=== PATIENT | male | born 1980 | race American Indian/Alaskan Native ===

== ENCOUNTER 2018-08-09 02:23 | Emergency (ER) | payer MEDICARE ==
[2018-08-09 04:39] VITALS: BP 146/84
[2018-08-09] MEDS ORDERED: NACL 0.9% 1000 ML 1,000 ML IV ONE (05:48)
[2018-08-09 06:10] LABS: Basophils % (Auto) 0.3 % (0.0-1.8); Eosinophils # (Auto) 0.3 K/mm3 (0.0-0.4); Eosinophils % (Auto) 3.7 % (0.0-4.3); Hematocrit 35.2 % (35.5-45.6); Hemoglobin 10.8 gm/dl (11.8-15.2); Lymphocytes # (Auto) 1.9 K/mm3 (1.2-5.4); Lymphocytes % (Auto) 27.8 % (13.4-35.0); Mean Corpuscular HGB Conc 31 % (32-34); Monocytes # (Auto) 0.5 K/mm3 (0.0-0.8); Monocytes % (Auto) 7.8 % (0.0-7.3); Platelet Count 262 K/mm3 (140-440); Red Blood Count 5.21 M/mm3 (3.65-5.03); Red Cell Distribution Width 19.9 % (13.2-15.2)
[2018-08-09 06:13] LABS: Mean Corpuscular Hemoglobin 21 pg (28-32); Mean Corpuscular Volume 68 fl (84-94)
[2018-08-09 06:39] LABS: Alanine Aminotransferase 9 units/L (7-56); Albumin 3.6 g/dL (3.9-5); BUN/Creatinine Ratio 14; Blood Urea Nitrogen 13 mg/dL (9-20); Calcium 9.1 mg/dL (8.4-10.2); Hemolysis Index 10; Lipase 18 units/L (13-60)
--- NOTE | 2018-08-09 09:43 | Emergency Department Report ---
ED Abdominal Pain HPI - General Chief Complaint: Abdominal Pain Stated Complaint: ABDOMINAL PAIN Source: patient, EMS Mode of arrival: Stretcher Limitations: Physical Limitation - History of Present Illness Initial Comments: This is a 38-year-old -[place] male presents with abdominal cramping and diarrhea that started yesterday. Past medical history of hypertension, cerebral palsy, and depression. Patient states he "shrimp at home and ate dinner and shortly after started having abdominal cramping, nausea, and diarrhea. Patient states prior to eating dinner yesterday appetite has been decreased due to living situation. Patient reports gas and sharp cramping. He reports feeling fine prior to eating yesterday. He denies fever, vomiting, frequency, urgency, dysuria, chest pain. MD Complaint: abdominal pain Onset/Timin -: days(s) Location: diffuse Radiation: none Migration to: no migration Severity: moderate Severity scale (0 -10): 5 Quality: cramping Consistency: constant Improves With: nothing Worsens With: bowel movement Context: possible food poisoning Associated Symptoms: nausea, diarrhea - Related Data Home Medications Medication Instructions Recorded Confirmed Last Taken Baclofen [Lioresal] 20 mg PO TID 10/01/13 10/01/13 10/01/13 13:00 20mg DULoxetine [Cymbalta] 1 cap PO QHS 10/01/13 10/01/13 10/01/13 30mg Duloxetine HCl [Cymbalta] 60 mg PO QDAY 10/01/13 10/01/13 10/01/13 0900 Ergocalciferol [Vitamin D2] 1 cap PO QWEEK 10/01/13 10/01/13 09/21/13 09:00 50,000 units HYDROcodone/APAP 7.5-325 [[place] 1 each PO Q6HR PRN 10/01/13 10/01/13 Unknown 7.5/325 mg] Ibuprofen [Motrin] 800 mg PO TID PRN 10/01/13 10/01/13 10/01/13 800mg Quetiapine Fumarate [Seroquel Xr] 200 mg PO QHS 10/01/13 10/01/13 09/30/13 200mg Quetiapine Fumarate [Seroquel] 50 mg PO BID 10/01/13 10/01/13 Unknown amLODIPine [Norvasc] 5 mg PO DAILY 10/01/13 10/01/13 10/01/13 09:00 5mg clonazePAM [Clonazepam] 0.5 mg PO BID PRN 10/01/13 10/01/13 10/01/13 09:00 0.5mg Previous Rx's Medication Instructions Recorded Last Taken Type Ondansetron [Zofran Odt] 8 mg PO Q8H PRN #20 tab.rapdis 01/02/14 Unknown Rx Polyethylene Glycol 3350 [Miralax 17 gm PO BID #10 packet 08/09/18 Unknown Rx 3350] Sodium Phosphate,Otoe-Dibasic 133 ml RC ONCE #1 enema 08/09/18 Unknown Rx [Enema Ready To Use] Allergies Allergy/AdvReac Type Severity Reaction Status Date / Time No Known Allergies Allergy Unverified 01/01/14 23:06 ED Review of Systems ROS: Stated complaint: ABDOMINAL PAIN Other details as noted in HPI Constitutional: denies: chills, fever Respiratory: denies: cough, shortness of breath, wheezing Cardiovascular: denies: chest pain, palpitations Gastrointestinal: abdominal pain, nausea, diarrhea. denies: vomiting Genitourinary: denies: urgency, dysuria Neurological: denies: headache, weakness, paresthesias Psychiatric: denies: anxiety, depression ED Past Medical Hx - Past Medical History Hx Hypertension: Yes Hx Psychiatric Treatment: Yes (see below) Additional medical history: Cerebal Palsy, major depression disorder, schizophrenia. Patient describes left-sided paresthesias from something pressing on this time, I think he is describing herniated disc - Surgical History Additional Surgical History: cervical disc repair/decompression, right leg surgery - Social History Smoking Status: Never Smoker Substance Use Type: None - Medications Home Medications: Home Medications Medication Instructions Recorded Confirmed Last Taken Type Baclofen [Lioresal] 20 mg PO TID 10/01/13 10/01/13 10/01/13 13:00 History 20mg DULoxetine [Cymbalta] 1 cap PO QHS 10/01/13 10/01/13 10/01/13 History 30mg Duloxetine HCl [Cymbalta] 60 mg PO QDAY 10/01/13 10/01/13 10/01/13 History 0900 Ergocalciferol [Vitamin D2] 1 cap PO QWEEK 10/01/13 10/01/13 09/21/13 09:00 History 50,000 units HYDROcodone/APAP 7.5-325 [[place] 1 each PO Q6HR PRN 10/01/13 10/01/13 Unknown History 7.5/325 mg] Ibuprofen [Motrin] 800 mg PO TID PRN 10/01/13 10/01/13 10/01/13 History 800mg Quetiapine Fumarate [Seroquel Xr] 200 mg PO QHS 10/01/13 10/01/13 09/30/13 History 200mg Quetiapine Fumarate [Seroquel] 50 mg PO BID 10/01/13 10/01/13 Unknown History amLODIPine [Norvasc] 5 mg PO DAILY 10/01/13 10/01/13 10/01/13 09:00 History 5mg clonazePAM [Clonazepam] 0.5 mg PO BID PRN 10/01/13 10/01/13 10/01/13 09:00 History 0.5mg Ondansetron [Zofran Odt] 8 mg PO Q8H PRN #20 tab.rapdis 01/02/14 Unknown Rx Polyethylene Glycol 3350 [Miralax 17 gm PO BID #10 packet 08/09/18 Unknown Rx 3350] Sodium Phosphate,Otoe-Dibasic 133 ml RC ONCE #1 enema 08/09/18 Unknown Rx [Enema Ready To Use] ED Physical Exam - General Limitations: Physical Limitation General appearance: alert, in no apparent distress, obese - Respiratory Respiratory exam: Present: normal lung sounds bilaterally. Absent: respiratory distress - Cardiovascular Cardiovascular Exam: Present: regular rate, normal rhythm. Absent: systolic murmur, diastolic murmur, rubs, gallop - GI/Abdominal GI/Abdominal exam: Present: soft, tenderness (LUQ and RUQ tenderness), normal bowel sounds. Absent: distended, guarding, rebound, rigid, organomegaly, mass - Neurological Exam Neurological exam: Present: alert, oriented X3 - Psychiatric Psychiatric exam: Present: normal affect, normal mood - Skin Skin exam: Present: warm, dry, intact, normal color. Absent: rash ED Course Vital Signs 08/09/18 08/09/18 04:36 05:42 Temperature 98.8 F 98.8 F Pulse Rate 81 81 Respiratory 16 Rate Blood Pressure 146/84 146/84 O2 Sat by Pulse 100 100 Oximetry ED Medical Decision Making - Lab Data Result diagrams: 08/09/18 05:49 08/09/18 05:49 Lab Results 08/09/18 08/09/18 08/09/18 Range/Units 05:49 05:49 09:41 WBC 6.9 (4.5-11.0) K/mm3 RBC 5.21 H (3.65-5.03) M/mm3 Hgb 10.8 L (11.8-15.2) gm/dl Hct 35.2 L (35.5-45.6) % MCV 68 L (84-94) fl MCH 21 L (28-32) pg MCHC 31 L (32-34) % RDW 19.9 H (13.2-15.2) % Plt Count 262 (140-440) K/mm3 Lymph % (Auto) 27.8 (13.4-35.0) % [place] % (Auto) 7.8 H (0.0-7.3) % Eos % (Auto) 3.7 (0.0-4.3) % Baso % (Auto) 0.3 (0.0-1.8) % Lymph # 1.9 (1.2-5.4) K/mm3 [place] # 0.5 (0.0-0.8) K/mm3 Eos # 0.3 (0.0-0.4) K/mm3 Baso # 0.0 (0.0-0.1) K/mm3 Seg Neutrophils % 60.4 (40.0-70.0) % Seg Neutrophils # 4.2 (1.8-7.7) K/mm3 Sodium 141 (137-145) mmol/L Potassium 3.8 (3.6-5.0) mmol/L Chloride 104.0 (98-107) mmol/L Carbon Dioxide 26 (22-30) mmol/L Anion Gap 15 mmol/L BUN 13 (9-20) mg/dL Creatinine 0.9 (0.8-1.5) mg/dL Estimated GFR > 60 ml/min BUN/Creatinine Ratio 14 % Glucose 85 (75-100) mg/dL Calcium 9.1 (8.4-10.2) mg/dL Total Bilirubin 0.30 (0.1-1.2) mg/dL AST 12 (5-40) units/L ALT 9 (7-56) units/L Alkaline Phosphatase 97 (35-129) units/L Total Protein 7.0 (6.3-8.2) g/dL Albumin 3.6 L (3.9-5) g/dL Albumin/Globulin Ratio 1.1 % Lipase 18 (13-60) units/L Urine Color Yellow (Yellow) Urine Turbidity Clear (Clear) Urine pH 6.0 (5.0-7.0) Ur Specific [place] 1.023 (1.003-1.030) Urine Protein <15 mg/dl (Negative) mg/dL Urine Glucose (UA) Neg (Negative) mg/dL Urine Ketones Neg (Negative) mg/dL Urine Blood Neg (Negative) Urine Nitrite Neg (Negative) Urine Bilirubin Neg (Negative) Urine Urobilinogen 4.0 (<2.0) mg/dL Ur Leukocyte Esterase Neg (Negative) Urine WBC (Auto) 1.0 (0.0-6.0) /HPF Urine RBC (Auto) 1.0 (0.0-6.0) /HPF Urine Mucus 2+ /HPF - Radiology Data Radiology results: report reviewed, image reviewed CT ABDOMEN PELVIS WITHOUT CONTRAST: HISTORY: Left upper quadrant tenderness. COMPARISON: none. TECHNIQUE: Helical CT in 1.25mm intervals without IV contrast. Sagittal and coronal reconstructions. FINDINGS: Lung bases: Normal. Liver: Normal. Biliary system: Normal. Pancreas: Normal. Spleen: Normal. Kidneys/ureters/bladder: Normal. Adrenal glands: Normal. Aorta: Normal. Intestines: Within normal limits given no oral contrast was administered. There is moderate to large stool in the rectal vault. Appendix: Normal. Pelvic viscera: Normal. Ascites: None. Adenopathy: None. Musculoskeletal: Normal. IMPRESSION: No acute process is identified in the abdomen or pelvis. No clear explanation for left upper quadrant tenderness. Moderate fecal retention in the rectum. - Medical Decision Making Patient examined by me. Patient nontoxic appearing and in no distress noted. Vitals stable. Obtained labs and CT of abdomen. CBC findings of anemia. CT of abdomen dictated by radiologist and report reviewed by myself. No acute process is identified in the abdomen or pelvis. No clear explanation for left upper quadrant tenderness. Moderate fecal retention in the rectum. Start miralax and enema, increase fiber and water intake for constipation. Follow up with PCP. Critical care attestation.: If time is entered above; I have spent that time in minutes in the direct care of this critically ill patient, excluding procedure time. ED Disposition Clinical Impression: Constipation due to outlet obstruction, Gastroenteritis Diarrhea Qualifiers: Diarrhea type: presumed infectious Qualified Code(s): R19.7 - Diarrhea, unspecified Disposition: TO HOME OR SELFCARE Is pt being admited?: No Does the pt Need Aspirin: No Condition: Stable Instructions: Gastroenteritis (ED), Constipation (ED), High Fiber Diet (ED) Additional Instructions: Increase fiber intake with foods and/or MiraLAX. Increase water intake and drink or eat prunes. Take colace daily to soften stool. Use enema suppository to help expel bowel. Follow up with primary care provider in 24-72 hours. Prescriptions: Polyethylene Glycol 3350 [Miralax 3350] 17 gm PO BID #10 packet Sodium Phosphate,Otoe-Dibasic [Enema Ready To Use] 133 ml RC ONCE #1 enema Referrals: [facility] [Outside] - 3-5 Days [facility] [Outside] - 3-5 Days [facility] [Outside] - 3-5 Days Time of Disposition: 11:10 Print Language: THAI
[2018-08-09 10:20] LABS: Bilirubin,Urine NEG (Negative); Blood,Urine NEG (Negative); Color,Urine Yellow (Yellow); Mucus,Urine 2+ /HPF; Protein,Urine <15 mg/dL mg/dL (Negative)
--- NOTE | 2018-08-09 11:01 | Cat Scan Report ---
CT ABDOMEN PELVIS WITHOUT CONTRAST: HISTORY: Left upper quadrant tenderness. COMPARISON: none. TECHNIQUE: Helical CT in 1.25mm intervals without IV contrast. Sagittal and coronal reconstructions. FINDINGS: Lung bases: Normal. Liver: Normal. Biliary system: Normal. Pancreas: Normal. Spleen: Normal. Kidneys/ureters/bladder: Normal. Adrenal glands: Normal. Aorta: Normal. Intestines: Within normal limits given no oral contrast was administered. There is moderate to large stool in the rectal vault. Appendix: Normal. Pelvic viscera: Normal. Ascites: None. Adenopathy: None. Musculoskeletal: Normal. IMPRESSION: No acute process is identified in the abdomen or pelvis. No clear explanation for left upper quadrant tenderness. Moderate fecal retention in the rectum.
== END 2018-08-09 11:35 | disposition home or self-care (01) ==
LOC: ED 02:23
DX: K59.09 Other constipation (principal); K52.9 Noninfective gastroenteritis and colitis, unspecified; I10 Essential (primary) hypertension; G80.9 Cerebral palsy, unspecified; F20.9 Schizophrenia, unspecified; F32.9 Major depressive disorder, single episode, unspecified
CPT/HCPCS: 36415; 74176; 80053; 81001; 83690; 85025

== ENCOUNTER 2021-03-26 07:36 | Emergency (ER) | payer MEDICARE ==
--- NOTE | 2021-03-26 08:28 | Emergency Department Report ---
ED General Adult HPI - General Chief complaint: Fall Stated complaint: HYPOTHERMIA/FALL Time Seen by Provider: 03/26/21 07:46 Source: EMS Mode of arrival: Stretcher Limitations: No Limitations - History of Present Illness Initial comments: This is a very poorly cooperative 40-year-old male who states he is visiting family for 2 days. He states that he was out in his wheelchair and fell out onto the ground in the rain. EMS reported him down for 45 minutes. He states that he is visiting his cousin. He knows he is at [facility]. He states that he does not reside in the area but has been here before. He is quite lucid at the time of my encounter. He states he is cold. The nurse found him to have an axillary temp of 97. He refused rectal temperature. He is persistent and keeping blankets over his head. He will hardly allow examination. He does not report an injury. He is not complaining of pain. He states he will allow laboratory evaluation. He does not report any current medications. -: Gradual Associated Symptoms: denies other symptoms (Poorly cooperative but without co mplaint) - Related Data Home Medications Medication Instructions Recorded Confirmed Last Taken Baclofen [Lioresal] 20 mg PO TID 10/01/13 10/01/13 10/01/13 13:00 20 mg DULoxetine [Cymbalta] 1 cap PO QHS 10/01/13 10/01/13 10/01/13 30 mg Duloxetine HCl [Cymbalta] 60 mg PO QDAY 10/01/13 10/01/13 10/01/13 0900 Ergocalciferol [Vitamin D2] 1 cap PO QWEEK 10/01/13 10/01/13 09/21/13 09:00 50,000 units HYDROcodone/APAP 7.5-325 [[place] 1 each PO Q6HR PRN 10/01/13 10/01/13 Unknown 7.5/325 mg] Ibuprofen [Motrin] 800 mg PO TID PRN 10/01/13 10/01/13 10/01/13 800 mg Quetiapine Fumarate [Seroquel Xr] 200 mg PO QHS 10/01/13 10/01/13 09/30/13 200 mg Quetiapine Fumarate [Seroquel] 50 mg PO BID 10/01/13 10/01/13 Unknown amLODIPine [Norvasc] 5 mg PO DAILY 10/01/13 10/01/13 10/01/13 09:00 5 mg clonazePAM [Clonazepam] 0.5 mg PO BID PRN 10/01/13 10/01/13 10/01/13 09:00 0.5mg Previous Rx's Medication Instructions Recorded Last Taken Type Ondansetron [Zofran Odt] 8 mg PO Q8H PRN #20 tab.rapdis 01/02/14 Unknown Rx Sodium Phosphate,Asotin-Dibasic 133 ml RC ONCE #1 enema 08/09/18 Unknown Rx [Enema Ready To Use] polyethylene glycoL 3350 [Miralax 17 gm PO BID #10 packet 08/09/18 Unknown Rx 3350] Allergies Allergy/AdvReac Type Severity Reaction Status Date / Time No Known Allergies Allergy Unverified 01/01/14 23:06 ED Review of Systems ROS: Stated complaint: HYPOTHERMIA/FALL Other details as noted in HPI Comment: Unobtainable due to pts medical conditions (Lack of cooperation. Denies injury.) ED Past Medical Hx - Past Medical History Hx Hypertension: Yes Hx Psychiatric Treatment: Yes (see below) Additional medical history: Cerebal Palsy, major depression disorder, schizophrenia. Patient describes left-sided paresthesias from something pressing on this time, I think he is describing herniated disc - Surgical History Additional Surgical History: cervical disc repair/decompression, right leg surgery - Social History Smoking Status: Unknown if ever smoked - Medications Home Medications: Home Medications Medication Instructions Recorded Confirmed Last Taken Type Baclofen [Lioresal] 20 mg PO TID 10/01/13 10/01/13 10/01/13 13:00 History 20 mg DULoxetine [Cymbalta] 1 cap PO QHS 10/01/13 10/01/13 10/01/13 History 30 mg Duloxetine HCl [Cymbalta] 60 mg PO QDAY 10/01/13 10/01/13 10/01/13 History 0900 Ergocalciferol [Vitamin D2] 1 cap PO QWEEK 10/01/13 10/01/13 09/21/13 09:00 H istory 50,000 units HYDROcodone/APAP 7.5-325 [[place] 1 each PO Q6HR PRN 10/01/13 10/01/13 Unknown History 7.5/325 mg] Ibuprofen [Motrin] 800 mg PO TID PRN 10/01/13 10/01/13 10/01/13 History 800 mg Quetiapine Fumarate [Seroquel Xr] 200 mg PO QHS 10/01/13 10/01/13 09/30/13 Histo ry 200 mg Quetiapine Fumarate [Seroquel] 50 mg PO BID 10/01/13 10/01/13 Unknown History amLODIPine [Norvasc] 5 mg PO DAILY 10/01/13 10/01/13 10/01/13 09:00 History 5 mg clonazePAM [Clonazepam] 0.5 mg PO BID PRN 10/01/13 10/01/13 10/01/13 09:00 History 0.5mg Ondansetron [Zofran Odt] 8 mg PO Q8H PRN #20 tab.rapdis 01/02/14 Unknown Rx Sodium Phosphate,Asotin-Dibasic 133 ml RC ONCE #1 enema 08/09/18 Unknown Rx [Enema Ready To Use] polyethylene glycoL 3350 [Miralax 17 gm PO BID #10 packet 08/09/18 Unknown Rx 3350] ED Physical Exam - General Limitations: Physical Limitation General appearance: alert, in no apparent distress - Head Head exam: Present: atraumatic, normocephalic - Eye Eye exam: Present: normal appearance - ENT ENT exam: Present: mucous membranes moist - Neck Neck exam: Present: normal inspection - Respiratory Respiratory exam: Present: normal lung sounds bilaterally. Absent: respiratory distress - Cardiovascular Cardiovascular Exam: Present: regular rate (Hardly allows exam) - GI/Abdominal GI/Abdominal exam: Present: soft. Absent: distended, tenderness - Extremities Exam Extremities exam: Present: other (Legs appear contracted. Very edematous.) - Back Exam Back exam: Present: other (Unable to visualize.) - Neurological Exam Neurological exam: Present: other (No acute focal deficit) - Psychiatric Psychiatric exam: Present: agitated, flat affect (Poorly cooperative) - Skin Skin exam: Present: warm ED Course Vital Signs 03/26/21 03/26/21 03/26/21 07:34 07:43 08:00 Temperature 97.9 F Pulse Rate 74 Respiratory 17 Rate Blood Pressure 122/67 122/67 O2 Sat by Pulse 98 100 100 Oximetry 03/26/21 03/26/21 03/26/21 08:30 09:00 09:30 Temperature Pulse Rate Respiratory Rate Blood Pressure 137/61 127/67 129/75 O2 Sat by Pulse 100 100 100 Oximetry 03/26/21 03/26/21 03/26/21 10:30 11:00 11:30 Temperature Pulse Rate Respiratory Rate Blood Pressure 135/76 135/76 134/78 O2 Sat by Pulse 100 100 100 Oximetry 03/26/21 03/26/21 03/26/21 12:00 12:30 13:00 Temperature Pulse Rate Respiratory Rate Blood Pressure 129/75 127/71 126/71 O2 Sat by Pulse 100 99 100 Oximetry 03/26/21 13:30 Temperature Pulse Rate Respiratory Rate Blood Pressure 135/80 O2 Sat by Pulse 100 Oximetry - Reevaluation(s) Reevaluation #1: We will attempt medical screening. The patient states he does not know the number of his cousin. He may require case management. 03/26/21 08:28 Reevaluation #2: Patient resting in no distress. His medical screening was negative. He states he is ready to go home. He requests transport. He was resting comfortably and without pain complaint or any referred injury. 03/26/21 14:24 ED Medical Decision Making - Lab Data Result diagrams: 03/26/21 08:11 03/26/21 08:11 Critical care attestation.: If time is entered above; I have spent that time in minutes in the direct care of this critically ill patient, excluding procedure time. ED Disposition Clinical Impression: Encounter for medical screening examination Fall Qualifiers: Encounter type: initial encounter Qualified Code(s): W19.XXXA - Unspecified fall, initial encounter Disposition: DC-01 TO HOME OR SELFCARE Is pt being admited?: No Does the pt Need Aspirin: No Condition: Stable Instructions: Medical Screening Exam Additional Instructions: Return to the emergency department for any acute change or problem. Referrals: PRIMARY MD RICKY [Primary Care Provider] - 3-5 Days [facility] [Provider Group] - 3-5 Days Time of Disposition: 14:25
[2021-03-26 08:31] LABS: Basophils % (Auto) 0.4 % (0.0-1.8); Eosinophils # (Auto) 0.3 K/mm3 (0.0-0.4); Eosinophils % (Auto) 3.3 % (0.0-4.3); Hematocrit 37.4 % (35.5-45.6); Hemoglobin 11.5 gm/dl (11.8-15.2); Lymphocytes # (Auto) 1.1 K/mm3 (1.2-5.4); Lymphocytes % (Auto) 14.5 % (13.4-35.0); Mean Corpuscular HGB Conc 31 % (32-34); Mean Corpuscular Volume 74 fl (84-94); Monocytes # (Auto) 0.6 K/mm3 (0.0-0.8); Monocytes % (Auto) 7.3 % (0.0-7.3); Platelet Count 290 K/mm3 (140-440); Red Blood Count 5.03 M/mm3 (3.65-5.03)
[2021-03-26 08:41] LABS: INR 1.03 (0.87-1.13)
[2021-03-26 08:42] LABS: Partial Thromboplastin Time 35.2 Sec. (24.2-36.6)
[2021-03-26 08:45] LABS: Bilirubin,Urine NEG (Negative); Blood,Urine NEG (Negative); Color,Urine Yellow (Yellow); Mucus,Urine FEW /HPF; Protein,Urine <15 mg/dL mg/dL (Negative)
[2021-03-26 08:50] LABS: Amphetamine Screen,Urine Negative; Benzodiazepines Screen,Urine Negative; Cannabinoid Screen,Urine Negative; Cocaine Screen,Urine Negative; Methadone Screen,Urine Negative; Opiate Screen,Urine Negative
[2021-03-26 09:18] LABS: Creatine Kinase MB 1.4 ng/mL (0.0-4.0)
[2021-03-26 09:20] LABS: Alanine Aminotransferase 15 units/L (7-56); Albumin 3.4 g/dL (3.9-5); BUN/Creatinine Ratio 11; Blood Urea Nitrogen 9 mg/dL (9-20); Calcium 8.6 mg/dL (8.4-10.2); Hemolysis Index 2
[2021-03-26 09:44] LABS: Bilirubin,Direct < 0.2 mg/dL (0-0.2)
[2021-03-26 19:03] VITALS: BP 141/87
== END 2021-03-26 19:04 | disposition home or self-care (01) ==
LOC: ED 07:36
DX: I10 Essential (primary) hypertension (principal); Z79.899 Other long term (current) drug therapy; Z00.00 Encounter for general adult medical examination without abnormal findings; W19.XXXA Unspecified fall, initial encounter; Y93.89 Activity, other specified; Y92.89 Other specified places as the place of occurrence of the external cause; Y99.8 Other external cause status
CPT/HCPCS: 36415; 70450; 80048; 80076; 80307; 80320; 81001; 82140; 82550; 82553; 83735; 83880; 85025; 85610; 85730; 87040; 99283; G0480

== ENCOUNTER 2021-03-26 20:46 | Emergency (ER) | payer MEDICARE ==
--- NOTE | 2021-03-26 22:03 | Emergency Department Report ---
HPI - General Time Seen by Provider: 03/26/21 21:43 - HPI HPI: This 40-year-old male was seen earlier today by one of my colleagues. At that time he was brought to the emergency department by [facility] after he had a fall out of his wheelchair while it was raining. He says that this occurred at or near his cousin's house. The patient is wheelchair-bound secondary to cerebral palsy. Apparently there was some type of issue in getting his wheelchair transported with him to the emergency department. He had vital signs and blood work done and was cleared for discharge. He was picked up by [employer] and brought to the the address of his actual residence where they found that his home was just essentially a mattress on the floor that was surrounded by garbage. The patient asked to be brought to his cousin's house so that he could get his wheelchair or just to be left at a bus stop, but [employer] felt they could not do that and brought him back to the emergency department. The patient says that his cousin is unable to come and get him from the emergency department. He has no new complaints from his original ER visit this afternoon. ED Past Medical Hx - Past Medical History Hx Hypertension: Yes Hx Psychiatric Treatment: Yes (see below) Additional medical history: Cerebal Palsy, major depression disorder, schizophrenia. Patient describes left-sided paresthesias from something pressing on this time, I think he is describing herniated disc - Surgical History Additional Surgical History: cervical disc repair/decompression, right leg surgery - Social History Smoking Status: Unknown if ever smoked - Medications Home Medications: Home Medications Medication Instructions Recorded Confirmed Last Taken Type Baclofen [Lioresal] 20 mg PO TID 10/01/13 10/01/13 10/01/13 13:00 History 20 mg DULoxetine [Cymbalta] 1 cap PO QHS 10/01/13 10/01/13 10/01/13 History 30 mg Duloxetine HCl [Cymbalta] 60 mg PO QDAY 10/01/13 10/01/13 10/01/13 History 0900 Ergocalciferol [Vitamin D2] 1 cap PO QWEEK 10/01/13 10/01/13 09/21/13 09:00 History 50,000 units HYDROcodone/APAP 7.5-325 [[place] 1 each PO Q6HR PRN 10/01/13 10/01/13 Unknown History 7.5/325 mg] Ibuprofen [Motrin] 800 mg PO TID PRN 10/01/13 10/01/13 10/01/13 History 800 mg Quetiapine Fumarate [Seroquel Xr] 200 mg PO QHS 10/01/13 10/01/13 09/30/13 History 200 mg Quetiapine Fumarate [Seroquel] 50 mg PO BID 10/01/13 10/01/13 Unknown History amLODIPine [Norvasc] 5 mg PO DAILY 10/01/13 10/01/13 10/01/13 09:00 History 5 mg clonazePAM [Clonazepam] 0.5 mg PO BID PRN 10/01/13 10/01/13 10/01/13 09:00 History 0.5mg Ondansetron [Zofran Odt] 8 mg PO Q8H PRN #20 tab.rapdis 01/02/14 Unknown Rx Sodium Phosphate,[place]-Dibasic 133 ml RC ONCE #1 enema 08/09/18 Unknown Rx [Enema Ready To Use] polyethylene glycoL 3350 [Miralax 17 gm PO BID #10 packet 08/09/18 Unknown Rx 3350] ED Review of Systems ROS: Stated complaint: CASE MANAGEMENT/RETURN VISIT Other details as noted in HPI Comment: All other systems reviewed and negative Constitutional: denies: chills, fever Eyes: denies: eye pain, vision change ENT: denies: ear pain, throat pain Respiratory: denies: cough, shortness of breath Cardiovascular: denies: chest pain, palpitations Gastrointestinal: denies: abdominal pain, vomiting Genitourinary: denies: dysuria, discharge Musculoskeletal: denies: back pain, arthralgia Skin: denies: rash, lesions Neurological: denies: headache, weakness Physical Exam - Physical Exam Physical Exam: GENERAL: The patient is well-developed well-nourished. HENT: Normocephalic. Atraumatic. Patient has moist mucous membranes. EYES: Extraocular motions are intact. NECK: Supple. Trachea is midline. CHEST/LUNGS: Clear to auscultation. There is no respiratory distress noted. HEART/CARDIOVASCULAR: Regular. There is no tachycardia. There is no murmur. ABDOMEN: Abdomen is soft, nontender. Patient has normal bowel sounds. SKIN: Skin is warm and dry. NEURO: The patient is awake, alert, and cooperative. The patient has no focal neurologic deficits. Normal speech. MUSCULOSKELETAL: There is no tenderness or deformity. ED Medical Decision Making - Lab Data Result diagrams: 04/01/21 14:38 04/01/21 14:38 - Medical Decision Making This patient was brought back to the emergency department, essentially requiring a case management consult. He was seen earlier in the day for his fall from his wheelchair. At that time the patient had laboratory studies that were unremarkable including CBC, coags, metabolic panel. Based on my colleagues charting, the patient was feeling improved and asking for discharge. The issue arose in which the patient wanted to be discharged and then transported to his cousin's house where his wheelchair is. Transportation brought him to his actual residence. This residence was essentially a mattress on the floor and was very disheveled with garbage/trash even on top of the mattress. Transportation did not feel that they could leave the patient in these conditi ons. The patient asked, once again, to be brought to his cousin's house or at least to a bus stop, but apparently they are unable to do so and brought the patient back to the emergency department. He has no new complaints and vital signs are reassuring including being afebrile. Therefore I did not feel that the patient required any repeat laboratory studies or any imaging. We will continue to monitor him while he is in the emergency department and the patient will have a case management consult in the morning for discharge planning assistance. Critical Care Time: No Critical care attestation.: If time is entered above; I have spent that time in minutes in the direct care of this critically ill patient, excluding procedure time. ED Disposition Clinical Impression: Discharge planning issues, History of cerebral palsy, Elevated blood pressure reading Disposition: DC-01 TO HOME OR SELFCARE Is pt being admited?: No Condition: Stable Additional Instructions: Professional and Agency Contacts To help [facility] Crises(07/06) [place] Crisis Line: Suicide Prevention Line: Crisis Text Line: Text START to 022891 Emergency: 911 Outpatient COMMUNITY Behavioral Health Resources: [facility]: [facility] [address] [place], [place] [address] F[place]: [facility] [address] [place] [address] [place]: [facility] - [address] [place] [address] Wednesday thru Wednesday - 8am - 5pm [place]: [facility] Address: [address], [place] [address] [place]: [facility] Address: [address] [place] [address] Wednesday thru Wednesday- 7am-2pm [facility] Address: [address] [place] [address] Wednesday thru Wednesday: 8:30AM-5PM Referrals: PRIMARY CARE, [Primary Care Provider] - 3-5 Days Time of Disposition: 05:13
[2021-03-31] MEDS ORDERED: ACETAMINOPHEN 325 MG TAB PO ONE (16:22)
[2021-04-01] MEDS ORDERED: LORazepam 2 MG/ML VIAL IM PRN (14:30)
[2021-04-01] MEDS ORDERED: ONDANSETRON 4 MG ODT TAB PO PRN (14:30)
[2021-04-01] MEDS ORDERED: diphenhydrAMINE 25 MG CAP PO PRN (14:30)
--- NOTE | 2021-04-01 14:34 | Event Note ---
Date: 04/01/21 The patient was evaluated in the emergency department for symptoms described in the history of present illness. He/she was evaluated in the context of the global COVID-19 pandemic, which necessitated consideration that the patient might be at risk for infection with the virus that causes COVID-19. Institutional protocols and algorithms that pertain to the evaluation of patients at risk for COVID-19 are in a state of rapid change based on information released by regulatory bodies including the CDC and federal and state organizations. These policies and algorithms were followed during the patient's care in the emergency department. Please note that these policies, procedures and recommendations changed on a rapid basis. Case management, in conjunction with Adult Protective Services, have approached me regarding this patient, or the request for formal psychiatric evaluation, to determine decision-making capacity. Apparently, this patient was recently transported to his reported living address, in [place], and the living conditions were deemed to be too squalid for human habitation, by EMS personnel, and thus the patient was thus brought back to this emergency room. He was deemed to not have an emergent medical condition on his initial ER evaluation. Case management, in conjunction with Adult Protective Services, have evaluated the patient, and they are concerned that the patient may not have decision- making capacity or rational decision-making ability. Furthermore, his mother is not able to care for him. The patient also reportedly has cerebral palsy, and may be wheelchair dependent. When I evaluate the patient, he is alert and oriented to name, place, location and month, and is able to recall the president. He ate a meal without difficulty, and is not homicidal or suicidal. However, he is somewhat verbally aggressive, and occasionally verbally belligerent, although this can be deescalated. In order to facilitate appropriate disposition, we will place a mental health consultation to determine if the patient truly has decision-making capacity and ability. He had laboratory studies 6 days which were unremarkable, and which I personally reviewed, and we will repeat laboratory studies and obtain a Covid swab, in case patient requires psychiatric placement. Nursing documentation, and case management documentation reviewed and appreciated. Labs 04/01/21 04/01/21 04/01/21 14:38 14:38 14:38 WBC 7.0 RBC 5.09 H Hgb 12.3 Hct 37.8 MCV 74 L MCH 24 L MCHC 32 RDW 18.0 H Plt Count 303 Sodium 139 Potassium 4.2 Chloride 103.3 Carbon Dioxide 27 Anion Gap 13 BUN 11 Creatinine 0.8 Estimated GFR > 60 BUN/Creatinine Ratio 14 Glucose 101 H Calcium 9.4 Magnesium 2.00 Total Creatine Kinase 263 H TSH 2.950 Urine Color Urine Turbidity Urine pH Ur Specific [place] Urine Protein Urine Glucose (UA) Urine Ketones Urine Blood Urine Nitrite Urine Bilirubin Urine Urobilinogen Ur Leukocyte Esterase Urine WBC (Auto) Urine RBC (Auto) Urine Mucus Salicylates Urine Opiates Screen Urine Methadone Screen Acetaminophen Ur Barbiturates Screen Ur Phencyclidine Scrn Ur Amphetamines Screen U Benzodiazepines Scrn Urine Cocaine Screen U Marijuana (THC) Screen Drugs of Abuse Note 04/01/21 04/01/21 04/01/21 14:38 14:38 17:36 WBC RBC Hgb Hct MCV MCH MCHC RDW Plt Count Sodium Potassium Chloride Carbon Dioxide Anion Gap BUN Creatinine Estimated GFR BUN/Creatinine Ratio Glucose Calcium Magnesium Total Creatine Kinase TSH Urine Color Yellow Urine Turbidity Clear Urine pH 7.0 Ur Specific [place] 1.011 Urine Protein <15 mg/dl Urine Glucose (UA) Neg Urine Ketones Neg Urine Blood Neg Urine Nitrite Neg Urine Bilirubin Neg Urine Urobilinogen 2.0 Ur Leukocyte Esterase Neg Urine WBC (Auto) < 1.0 Urine RBC (Auto) < 1.0 Urine Mucus Few Salicylates < 0.3 L Urine Opiates Screen Urine Methadone Screen Acetaminophen 5.0 L Ur Barbiturates Screen Ur Phencyclidine Scrn Ur Amphetamines Screen U Benzodiazepines Scrn Urine Cocaine Screen U Marijuana (THC) Screen Drugs of Abuse Note 04/01/21 17:36 WBC RBC Hgb Hct MCV MCH MCHC RDW Plt Count Sodium Potassium Chloride Carbon Dioxide Anion Gap BUN Creatinine Estimated GFR BUN/Creatinine Ratio Glucose Calcium Magnesium Total Creatine Kinase TSH Urine Color Urine Turbidity Urine pH Ur Specific [place] Urine Protein Urine Glucose (UA) Urine Ketones Urine Blood Urine Nitrite Urine Bilirubin Urine Urobilinogen Ur Leukocyte Esterase Urine WBC (Auto) Urine RBC (Auto) Urine Mucus Salicylates Urine Opiates Screen Negative Urine Methadone Screen Negative Acetaminophen Ur Barbiturates Screen Negative Ur Phencyclidine Scrn Negative Ur Amphetamines Screen Negative U Benzodiazepines Scrn Negative Urine Cocaine Screen Negative U Marijuana (THC) Screen Negative Drugs of Abuse Note Disclamer
[2021-04-01 15:13] LABS: BUN/Creatinine Ratio 14; Blood Urea Nitrogen 11 mg/dL (9-20); Calcium 9.4 mg/dL (8.4-10.2); Hemolysis Index 2
[2021-04-01 15:26] LABS: Hematocrit 37.8 % (35.5-45.6); Hemoglobin 12.3 gm/dl (11.8-15.2); Mean Corpuscular HGB Conc 32 % (32-34); Mean Corpuscular Volume 74 fl (84-94); Platelet Count 303 K/mm3 (140-440); Red Blood Count 5.09 M/mm3 (3.65-5.03)
[2021-04-01 17:44] LABS: Bilirubin,Urine NEG (Negative); Blood,Urine NEG (Negative); Color,Urine Yellow (Yellow); Mucus,Urine FEW /HPF; Protein,Urine <15 mg/dL mg/dL (Negative); RBC,Urine < 1.0 /HPF (0.0-6.0); WBC,Urine < 1.0 /HPF (0.0-6.0)
[2021-04-01 17:51] LABS: Amphetamine Screen,Urine Negative; Benzodiazepines Screen,Urine Negative; Cannabinoid Screen,Urine Negative; Cocaine Screen,Urine Negative; Methadone Screen,Urine Negative; Opiate Screen,Urine Negative
--- NOTE | 2021-04-02 11:10 | Event Note ---
Date: 04/02/21 The patient was evaluated in the emergency department for symptoms described in the history of present illness. He/she was evaluated in the context of the global COVID-19 pandemic, which necessitated consideration that the patient might be at risk for infection with the virus that causes COVID-19. Institutional protocols and algorithms that pertain to the evaluation of patients at risk for COVID-19 are in a state of rapid change based on information released by regulatory bodies including the CDC and federal and state organizations. These policies and algorithms were followed during the patient's care in the emergency department. Please note that these policies, procedures and recommendations changed on a rapid basis. Patient resting comfortably in stretcher, and in no acute distress. Vital signs unremarkable, laboratory studies have been unremarkable, and no untoward events overnight were reported to myself. Patient refused Covid swab, although we do not clinically suspect Covid. In addition, he would not cooperate with a psychiatric assess his capacity evaluation. Physical therapy evaluation is pending at this time. At the moment, patient resting comfortably in stretcher, in no acute distress. This patient's case has been escalated to the directors of emergency medicine department respectively, hospital medicine Director, and director of risk management, as this will likely require high-level administrative intervention and management, given the multiple complexities involved in this patient case. However, at this time, he does not appear to have an emergent medical condition that would necessitate hospitalization. He remains medically suitable for placement at this time. His main issues at this time appear to be placement, and case management related. Lab Results 04/01/21 04/01/21 04/01/21 Range/Units 14:38 14:38 14:38 WBC 7.0 (4.5-11.0) K/mm3 RBC 5.09 H (3.65-5.03) M/mm3 Hgb 12.3 (11.8-15.2) gm/dl Hct 37.8 (35.5-45.6) % MCV 74 L (84-94) fl MCH 24 L (28-32) pg MCHC 32 (32-34) % RDW 18.0 H (13.2-15.2) % Plt Count 303 (140-440) K/mm3 Sodium 139 (137-145) mmol/L Potassium 4.2 (3.6-5.0) mmol/L Chloride 103.3 (98-107) mmol/L Carbon Dioxide 27 (22-30) mmol/L Anion Gap 13 mmol/L BUN 11 (9-20) mg/dL Creatinine 0.8 (0.8-1.3) mg/dL Estimated GFR > 60 ml/min BUN/Creatinine Ratio 14 % Glucose 101 H (75-100) mg/dL Calcium 9.4 (8.4-10.2) mg/dL Magnesium 2.00 (1.7-2.3) mg/dL Total Creatine Kinase 263 H (55-170) units/L TSH 2.950 (0.270-4.200) mlU/mL Urine Color (Yellow) Urine Turbidity (Clear) Urine pH (5.0-7.0) Ur Specific [place] (1.003-1.030) Urine Protein (Negative) mg/dL Urine Glucose (UA) (Negative) mg/dL Urine Ketones (Negative) mg/dL Urine Blood (Negative) Urine Nitrite (Negative) Urine Bilirubin (Negative) Urine Urobilinogen (<2.0) mg/dL Ur Leukocyte Esterase (Negative) Urine WBC (Auto) (0.0-6.0) /HPF Urine RBC (Auto) (0.0-6.0) /HPF Urine Mucus /HPF Salicylates (2.8-20.0) mg/dL Urine Opiates Screen Urine Methadone Screen Acetaminophen (10.0-30.0) ug/mL Ur Barbiturates Screen Ur Phencyclidine Scrn Ur Amphetamines Screen U Benzodiazepines Scrn Urine Cocaine Screen U Marijuana (THC) Screen Drugs of Abuse Note 04/01/21 04/01/21 04/01/21 Range/Units 14:38 14:38 17:36 WBC (4.5-11.0) K/mm3 RBC (3.65-5.03) M/mm3 Hgb (11.8-15.2) gm/dl Hct (35.5-45.6) % MCV (84-94) fl MCH (28-32) pg MCHC (32-34) % RDW (13.2-15.2) % Plt Count (140-440) K/mm3 Sodium (137-145) mmol/L Potassium (3.6-5.0) mmol/L Chloride (98-107) mmol/L Carbon Dioxide (22-30) mmol/L Anion Gap mmol/L BUN (9-20) mg/dL Creatinine (0.8-1.3) mg/dL Estimated GFR ml/min BUN/Creatinine Ratio % Glucose (75-100) mg/dL Calcium (8.4-10.2) mg/dL Magnesium (1.7-2.3) mg/dL Total Creatine Kinase (55-170) units/L TSH (0.270-4.200) mlU/mL Urine Color Yellow (Yellow) Urine Turbidity Clear (Clear) Urine pH 7.0 (5.0-7.0) Ur Specific [place] 1.011 (1.003-1.030) Urine Protein <15 mg/dl (Negative) mg/dL Urine Glucose (UA) Neg (Negative) mg/dL Urine Ketones Neg (Negative) mg/dL Urine Blood Neg (Negative) Urine Nitrite Neg (Negative) Urine Bilirubin Neg (Negative) Urine Urobilinogen 2.0 (<2.0) mg/dL Ur Leukocyte Esterase Neg (Negative) Urine WBC (Auto) < 1.0 (0.0-6.0) /HPF Urine RBC (Auto) < 1.0 (0.0-6.0) /HPF Urine Mucus Few /HPF Salicylates < 0.3 L (2.8-20.0) mg/dL Urine Opiates Screen Urine Methadone Screen Acetaminophen 5.0 L (10.0-30.0) ug/mL Ur Barbiturates Screen Ur Phencyclidine Scrn Ur Amphetamines Screen U Benzodiazepines Scrn Urine Cocaine Screen U Marijuana (THC) Screen Drugs of Abuse Note 04/01/21 Range/Units 17:36 WBC (4.5-11.0) K/mm3 RBC (3.65-5.03) M/mm3 Hgb (11.8-15.2) gm/dl Hct (35.5-45.6) % MCV (84-94) fl MCH (28-32) pg MCHC (32-34) % RDW (13.2-15.2) % Plt Count (140-440) K/mm3 Sodium (137-145) mmol/L Potassium (3.6-5.0) mmol/L Chloride (98-107) mmol/L Carbon Dioxide (22-30) mmol/L Anion Gap mmol/L BUN (9-20) mg/dL Creatinine (0.8-1.3) mg/dL Estimated GFR ml/min BUN/Creatinine Ratio % Glucose (75-100) mg/dL Calcium (8.4-10.2) mg/dL Magnesium (1.7-2.3) mg/dL Total Creatine Kinase (55-170) units/L TSH (0.270-4.200) mlU/mL Urine Color (Yellow) Urine Turbidity (Clear) Urine pH (5.0-7.0) Ur Specific [place] (1.003-1.030) Urine Protein (Negative) mg/dL Urine Glucose (UA) (Negative) mg/dL Urine Ketones (Negative) mg/dL Urine Blood (Negative) Urine Nitrite (Negative) Urine Bilirubin (Negative) Urine Urobilinogen (<2.0) mg/dL Ur Leukocyte Esterase (Negative) Urine WBC (Auto) (0.0-6.0) /HPF Urine RBC (Auto) (0.0-6.0) /HPF Urine Mucus /HPF Salicylates (2.8-20.0) mg/dL Urine Opiates Screen Negative Urine Methadone Screen Negative Acetaminophen (10.0-30.0) ug/mL Ur Barbiturates Screen Negative Ur Phencyclidine Scrn Negative Ur Amphetamines Screen Negative U Benzodiazepines Scrn Negative Urine Cocaine Screen Negative U Marijuana (THC) Screen Negative Drugs of Abuse Note Disclamer Vital Signs 03/26/21 03/27/21 03/27/21 23:14 12:00 20:00 Temperature 98.4 F 97.9 F 98.1 F Pulse Rate 100 H 88 87 Respiratory 18 16 18 Rate Blood Pressure 151/95 142/96 151/99 [Left] O2 Sat by Pulse 100 98 99 Oximetry 03/28/21 03/29/21 03/30/21 19:38 08:00 18:43 Temperature 98.3 F 98.3 F Pulse Rate 99 H 94 H 76 Respiratory 18 15 16 Rate Blood Pressure 123/80 139/91 132/86 [Left] O2 Sat by Pulse 99 99 96 Oximetry 03/31/21 03/31/21 03/31/21 18:20 21:07 22:00 Temperature 98.3 F 98.4 F Pulse Rate 91 H 91 H Respiratory 16 16 20 Rate Blood Pressure 135/76 142/88 [Left] O2 Sat by Pulse 100 100 99 Oximetry 04/01/21 04/02/21 21:00 09:58 Temperature 98.2 F Pulse Rate 92 H Respiratory 18 17 Rate Blood Pressure 136/97 [Left] O2 Sat by Pulse 96 Oximetry
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
--- NOTE | 2021-04-02 14:44 | Cat Scan Report ---
CT BRAIN: 04/02/2021 INDICATION / CLINICAL INFORMATION: behavioral changes, medicaL CLEARANCE. COMPARISON: 01/02/2014 FINDINGS: BRAIN/INTRACRANIAL STRUCTURES: Unenhanced CT images of the brain demonstrate no evidence of acute int racranial abnormality. Ventriculomegaly and ventricular deformity is present, unchanged when compared to the prior exam. There is no evidence of acute abnormality. There is no evidence of hemorrhage or mass. There are no a bnormal extra-axial fluid collections. EXTRACRANIAL STRUCTURES: Unremarkable. IMPRESSION: No acute abnormality. Stable ventriculomegaly and asymmetry. No change when compared to 01/02/2014. All CT scans at this location are performed using dose reduction to ALARA by means of automated expos ure control. Signer Name: Kemar Siddiqui MD Signed: 04/02/2021 2:39 PM Workstation Name: [id number]
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
--- NOTE | 2021-04-03 11:06 | Event Note ---
Dr. London psychiatrist reviewed the case. Considering the chronicity of patient's condition cerebral palsy, he agreed that patient is discharged with suitable accommodation as previously arranged by case management.
[2021-04-03 12:28] VITALS: BP 122/58
== END 2021-04-03 14:46 | disposition home or self-care (01) ==
LOC: ED 20:46
DX: I10 Essential (primary) hypertension (principal); G80.9 Cerebral palsy, unspecified; F20.9 Schizophrenia, unspecified; F32.9 Major depressive disorder, single episode, unspecified; Z98.890 Other specified postprocedural states; Z79.1 Long term (current) use of non-steroidal anti-inflammatories (NSAID); Z79.899 Other long term (current) drug therapy